=== PATIENT | female | born 1990 | race Caucasian/White ===

== ENCOUNTER 2024-02-11 14:12 | Emergency (ER) | payer OTHER, SELFPAY ==
[2024-02-11 14:16] VITALS: BP 118/71
--- NOTE | 2024-02-11 15:58 | ED.GENMED ---
History of Present Illness
General
Chief Complaint: Skin Problem
Source: patient and spouse
Exam Limitations: none
Time Seen by Provider: 02/11/24 15:12
Nursing documentation reviewed up to this point in time: agreed with
Travel History
Have you had any contact with someone who has COVID-19?: No
Do you have any symptoms of coronavirus? Fever > 100 degrees, chills, cough, shortness of breath, sore throat, loss of taste or smell, muscle aches, or headache?: No
History of Present Illness
History of Present Illness:
33-year-old female with past medical history of factor V Leiden presents to the emergency department for evaluation of bruising on her right vulva. Patient reports that she was taking a bath with her toddler yesterday and noticed that she had a
bruise on her right vulva. She says that over the past 24 hours it seems to have gotten a bit bigger so she came to the emergency room for evaluation. She says that it feels swollen and it is tender to the touch. She denies any trauma that she is
aware of�denies riding an exercise bike any saddle injury that she can recall. She denies any other complaints including bruising on the rest of her body, nosebleeding, GI bleeding, vaginal bleeding, gum bleeding. She denies any vaginal discharge.
She has not had any fevers or chills. She denies any other complaints.
Review of Systems
Review of Systems
All Other Systems: ROS reviewed and negative except as documented in HPI and ROS
Constitutional: Denies fever
Respiratory: Denies trouble breathing
Cardiac: Denies chest pain
ABD/GI: Denies abdominal pain, vomiting, bloody stools or black stools
: Reports other (Vulvar bruise); Denies flank pain or bleeding
Musculoskeletal: Denies neck pain or back pain
Neurological: Denies dizzy or headache
Phy Exam
Physical Exam
Physical Exam:
General: Awake, alert, oriented x3; no acute distress
Head: Normocephalic, atraumatic
Eyes: Conjunctiva normal
Throat: Airway intact, handling secretions
Neck: Trachea midline
Lungs: Breathing comfortably no distress
Heart: Regular rate
: Patient has some slight swelling and ecchymosis of the right vulva; no labial swelling, no vaginal bleeding or discharge noted, no vaginal lesions; bruising is limited to the vulva does not extend to the perineum there is no warmth or
induration, no erythema
Neuro: Cranial nerves grossly intact, speech fluid
Skin: no rash
Extremities: Warm and well-perfused
Scores
Heart Failure Risk
Heart Failure Risk Score: Not Applicable
Heart Score for Chest Pain Patients
STEMI patient?: Not applicable
Withdrawal Assessment of Alcohol
Withdrawal Assessment Completed?: Not applicable
Course
Orders/Labs/Results
Orders:
Orders
02/11/24 16:25
Complete Blood Count/With Diff Urgent
Comprehensive Metabolic Panel Urgent
PTT Urgent
Prothrombin Time Urgent
Abnormal Lab Results
02/11/24
16:25
RBC 4.17 L 10^6/uL
(4.20-5.40)
Hct 36.1 L %
(37.0-47.0)
Creatinine 0.5 L mg/dL
(0.6-1.0)
02/11/24 16:25
02/11/24 16:25
Vital Signs
Initial and Last Documented VS:
Initial Vital Signs
Temp Pulse Resp BP Pulse Ox
36.8 C 84 18 118/71 98
02/11/24 14:16 02/11/24 14:16 02/11/24 14:16 02/11/24 14:16 02/11/24 14:16
Last Documented Vital Signs
Temp Pulse Resp BP Pulse Ox
36.8 C 84 18 118/71 98
02/11/24 14:16 02/11/24 14:16 02/11/24 14:16 02/11/24 14:16 02/11/24 14:16
MDM/Problems Addressed
Differential Diagnosis Includes:
Bruising�could be related to trauma, bleeding disorder
MDM/Problems Addressed:
33-year-old female presents with bruising on the right vulva that she noticed yesterday and seems to gotten a bit bigger today. It is not particularly painful but she denies any trauma or injury and so she came to the emergency to be assessed.
Vital signs normal. Exam as above. Will check basic labs including a CBC and CMP, coags. Monitor closely reassess after the above.
Labs reviewed: CBC unremarkable notably platelet count normal at 241. CMP no clinically significant abnormalities. Coags are normal. Vital signs have been stable. No clear indication for hospital admission or imaging at this point bruising is
mild and localized. Suspect likely some occult trauma. I think she is stable for discharge and can follow-up with her primary physician. She feels comfortable with this plan. Spoke about return precautions all questions answered
*Pulse Oximetry
Patient hypoxic: no
*Critical Care Note
Total Time (30-74mins, 75-104mins- exclusive of procedures): Not Applicable
Data Reviewed
Source: patient and spouse
ED Attending Note
-
Portions of this chart may have been created with voice recognition software.� Occasional wrong word or��sound alike� substitutions may have occurred due to the inherent limitations of voice recognition software.
Discharge Plan
Departure
Patient Disposition: Home (Routine Discharge)
Date of Disposition: 02/11/24
Time of Disposition: 17:06
Patient with high blood pressure during this ER visit?: No
Discharge Problem:
Vulval bruising
Instructions: Taking care of bruises
Referrals:
Roxy Moss MD [Family Provider] - Follow up in 2-3 days
Activity Restrictions/Additional Instructions:
Thank you for visiting the Emergency Department at [facility].
1. Please schedule a follow up appointment as directed. Call first thing tomorrow morning to make an appointment.
2. If indicated, please take your medications as instructed and indicated on discharge paperwork.
3. If any of your symptoms do not improve, or persist, or become more severe within 6-12 hours, please return to the emergency department for further care.
4. Please return to the emergency department if you develop a headache, neck pain/stiffness, fever greater than 100.4F, chest pain, shortness of breath, persistent nausea, vomiting, slurred speech, difficulty walking, numbness/tingling, weakness,
signs of infection or any other symptoms that are worrisome to you.
Please call [phone] if you have any questions.
Interventions
Interventions:
*Risk Screen - Suicide Last Done: 02/11/24 15:19
*General Assessment Last Done: 02/11/24 14:16
*Neglect/Abuse Screening Last Done: 02/11/24 15:19
*ED COVID-19 Vaccine History Last Done: 02/11/24 14:16
Discharge Date and Time
Print Language: AZERI
[2024-02-11 16:33] LABS: % Basophils 0.5 % (0-2); % Immature Granulocytes 0.2 % (0-0.5); % Lymphocytes 48.8 % (20.5-51.1); % Monocytes 5.9 % (1.7-9.3); % Neutrophils 43.6 % (42.2-75.2); Absolute Eosinophils 0.1 10^3/uL (0-0.7); Absolute Lymphocytes 2.8 10^3/uL (1.2-3.4); Absolute Monocytes 0.3 10^3/uL (0.1-0.6); Absolute Neutrophils 2.5 10^3/uL (1.4-6.5); Hematocrit 36.1 % (37.0-47.0); Hemoglobin 12.2 g/dL (12.0-16.0); Mean Corp Hgb Conc. 33.8 g/dL (33.0-37.0); Mean Corpuscular Hgb 29.3 pg (27.0-31.0); Mean Corpuscular Volume 86.6 fL (81.0-99.0); Mean Platelet Volume 9.8 fL (7.4-10.4); Nucleated Red Blood Cells % 0 %; Platelet Count 241 10^3/uL (130-400); Red Blood Cell Count 4.17 10^6/uL (4.20-5.40); Red Cell Dist. Width 13.5 % (11.5-14.5); White Blood Cell Count 5.8 10^3/uL (4.8-10.8)
[2024-02-11 16:43] LABS: APTT 27.7 Sec (23.4-35.0); INR 1.03; PT 13.3 Sec (11.4-14.6)
[2024-02-11 16:47] LABS: ALT (SGPT) 14 U/L (0-35); AST (SGOT) 22 U/L (14-36); Albumin 4.3 g/dl (3.5-5.0); Alkaline Phosphatase 71 U/L (38-126); Blood Urea Nitrogen 11 mg/dl (7-17); Carbon Dioxide 29 mmol/L (22-30); Chloride 102 mmol/L (98-107); Glucose 94 mg/dl (70-99); Potassium 4.2 mmol/L (3.5-5.1); Sodium 136 mmol/L (135-145); Total Bilirubin 0.3 mg/dl (0.2-1.3); Total Protein 6.9 g/dl (6.3-8.2); eGFR > 60.00
== END 2024-02-11 17:22 | disposition home or self-care (01) ==
LOC: EMR 14:12
PROVIDERS: EMERGENCY PHYSICIAN Emergency Medicine; FAMILY PHYSICIAN Family Medicine
DX: S30.23XA Contusion of vagina and vulva, initial encounter (principal); X58.XXXA Exposure to other specified factors, initial encounter
CPT/HCPCS: 99283; 80053; 85025; 85610; 85730